=== PATIENT | female | born 1940 ===

== ENCOUNTER 2023-11-23 09:36 | Outpatient (REF) | payer MEDICARE, SELFPAY | END 2023-11-23 09:37 | disposition home or self-care (01) | LOC: HO.SH 09:36 | PROVIDERS: PCP Internal Medicine; Visit Provider Nurse Practitioner | DX: Z01.118 Encounter for examination of ears and hearing with other abnormal findings (principal); H90.3 Sensorineural hearing loss, bilateral | CPT/HCPCS: 92557 ==